=== PATIENT | male | born 1960 | race Caucasian/White ===

== ENCOUNTER 2018-11-08 14:25 | Emergency (ER) | payer MEDICARE ==
--- NOTE | 2018-11-08 14:45 | NUR ---
CALLED FOR TRIAGE NOT IN THE ROOM
--- NOTE | 2018-11-08 16:50 | NUR ---
CALLED FOR TRIAGE NOT IN THE WAITING ROOM
[2018-11-09] MEDS ORDERED: ASPI-1152 PO (10:08)
[2018-11-09] MEDS ORDERED: RISP4TAB PO (10:08)
[2018-11-09] MEDS ORDERED: CHLO25TA2 PO (10:08)
[2018-11-09] MEDS ORDERED: BENA10TA9 PO (10:08)
[2018-11-09] MEDS ORDERED: BENZ1TAB7 PO (10:08)
[2018-11-09] MEDS ORDERED: CARB200T PO (10:08)
[2018-11-09] MEDS ORDERED: GLIP5TAB13 PO (10:08)
[2018-11-09] MEDS ORDERED: ATOR20TA PO (10:08)
[2018-11-09] MEDS ORDERED: METF-442 PO (10:08)
== END 2018-11-08 17:05 | disposition left against medical advice (07) ==
LOC: ER 14:25
DX: Z53.21 Procedure and treatment not carried out due to patient leaving prior to being seen by health care provider (principal)

== ENCOUNTER 2018-11-08 18:53 | Inpatient (IN) | payer MEDICARE ==
[~2018-11-08] VITALS: Ht 182.9 cm; Wt 88.5 kg
--- NOTE | 2018-11-08 19:15 | NUR ---
C/O HYPERGLYCEMIA FROM SNF ([facility]). PT AAOX3, VSS. DENIES CP, SOB, DIZZINESS, HU, N/V, WEAKNESS @ THIS TIME. PT SEEN & EVAL'D BY DR. NIXON. WILL CONT TO MONITOR.
[2018-11-08 19:23] LABS: BASOPHILS # (AUTO) 0.1 /CMM (0.0-0.2); BASOPHILS % (AUTO) 0.8 % (0.0-2.0); EOSINOPHILS % (AUTO) 1.1 % (0.0-6.0); HEMATOCRIT 43 % (39-51); HEMOGLOBIN 14.5 g/dL (13.5-17.5); LYMPHOCYTES # (AUTO) 1.8 /CMM (0.8-4.8); LYMPHOCYTES % (AUTO) 18.5 % (20.0-44.0); MEAN CORPUSCULAR HGB CONC 34 g/dl (31.0-36.0); MEAN CORPUSCULAR VOLUME 93 fL (80-96); MONOCYTES # (AUTO) 0.6 /CMM (0.1-1.30); MONOCYTES % (AUTO) 6.6 % (2.0-12.0); NEUTROPHILS # (AUTO) 6.9 /CMM (1.8-8.9); PLATELET COUNT (AUTO) 234 /CMM (150-450); WHITE BLOOD COUNT (AUTO) 9.5 K/uL (4.3-11.0)
[2018-11-08 19:36] LABS: CALCIUM, SERUM 9.4 mg/dL (8.5-10.1); CREATININE 1.5 mg/dL (0.6-1.3); POTASSIUM 4.8 mmol/L (3.5-5.1)
[2018-11-08 19:42] LABS: ALCOHOL, BLOOD < 3 mg/dL (0-0); MAGNESIUM 1.8 mg/dL (1.8-2.4); PHOSPHORUS 3.3 mg/dL (2.5-4.9)
[2018-11-08 20:00] LABS: APPEARANCE,URINE Clear (CLEAR); BILIRUBIN,URINE Negative (NEGATIVE); BLOOD, URINE Negative Ery/uL (NEGATIVE); COLOR,URINE Yellow (YELLOW); KETONES,URINE Trace (NEGATIVE); LEUKOCYTE ESTERASE ,URINE Negative (NEGATIVE); NITRITE, URINE Negative (NEGATIVE); PROTEIN,URINE Negative (NEGATIVE); UGLUCOSE >=1000 mg/dL (NEGATIVE); UROBILINOGEN,URINE 0.2 EU/dL (0.2)
--- NOTE | 2018-11-08 20:05 | NUR ---
PT ADMIT TO 322-1 MED SURG DX HYPERGLYCEMIA DR MOISE ACCEPTED.
[2018-11-08 20:22] LABS: BACTERIA,URINE None seen /HPF (None Seen); RBC,URINE 0-2 /HPF (0-2); SQUAMOUS EPITHELIAL CELL,UR Few /HPF (None Seen); WBC,URINE 0-2 /HPF (0-3)
[2018-11-08] MEDS ORDERED: IV NS 0.9% 1,000 ML BAG IV STA (20:35)
[2018-11-08 20:45] LABS: ABG BASE EXCESS 1.5 mmol/L; ABG OXYGEN SATURATION 43.6 % (92.0-98.5); ABG PCO2 51.2 mmHg (35.0-45.0); ABG PH 7.356 (7.350-7.450); ABG PO2 23.2 mmHg (75.0-100.0); COHb 4.6 % (0.5-1.5); MetHb 0.4 % (0.0-1.5); O2Hb 41.4 % (94.0-97.0); SITE, ABG A-Line; VENT MODE, BG Room Air
[2018-11-08] MEDS ORDERED: INSULIN REGULAR, HUMAN 100 UNIT/ML 10 ML VIAL ONE (20:46)
[2018-11-08] MEDS ORDERED: INSULIN REGULAR, HUMAN 100 UNIT/ML 3 ML VIAL SQ ONE (21:00)
--- NOTE | 2018-11-08 21:04 | NUR ---
MEDICATED FOR ELEVATED BG PER ERMD ORDER, PT LORI WELL. REPORT GIVEN TO PAOLA MUNIZ AT MS3 FOR CONT OF CARE.
[2018-11-08 21:15] VITALS: BP 135/81
--- NOTE | 2018-11-08 21:15 | NUR ---
RN MS ADMITTING OPENING NOTES RECEIVED PATIENT FROM ER [facility] WHEELCHAIR, SAFELY TRANSFERRED TO BED, AMBULATORY WITH ASSIST, AWAKE ALERT AND ORIENTED X3, ABLE MAKE NEEDS KNOWN RESPIRATIONS EVEN AND UNLABORED WITH EQUAL RISE AND FALL OF CHEST, DENIES ANY PAIN OR DISCOMFORT AT THIS TIME, IV SITE TO RIGHT AC #18 G INTACT AND PATENT, NO REDNESS, NO INFILTRATION PRESENT, BELONGINGS LIST DONE, PATIENT IS UNABLE TO RECALL WHAT MEDICATIONS HE TAKES WILL NOTIFY MD OF MED LIST SENT FROM FACILITY, ORIENTED TO STAFF AND CALL LIGHT, SAFETY PRECAUTIONS IN PLACE, LOW BED AND LOCKED, BODY ASSESSMENT DONE, PICTURES TAKEN, PATIENT MADE COMFORTABLE WILL NOTIFY MD OF ADMISSION.
[2018-11-08 21:30] VITALS: BP 135/88
--- NOTE | 2018-11-08 21:45 | NUR ---
RN MS NOTES RECEIVED CALL BACK FROM NOTIFIED OD ACCUCHECK OF 491. VS WNL, 135/81,80,98.0,97%RA,20. WEIGHT 195.5 WENT OVER MED LIST PER MD CONTINUE CHLORTHALIDONE 25MG TAB DAILY BENAZEPRIL 10MG DAILY LIPITOR 20MG HS ASPIRIN 81MG DAILY TEGRETOL 200MG BID RISPERIDONE 4MG BID COGENTIN 1MG BID METFORMIN 1000MG BID DIET CCHO DIABETIC DIET IVF NS AT 75ML/HR PER MD USE WHAT WE HAVE IN FACILITY LEVEMIR 22 UNITS Q 12HOURS ONE DOSE TONIGHT AND NEXT DOSE 10 AM NOVOLOG 14 UNITS AC HUMALOG PER SLIDING SCALE FOR CORRECTION DOSE GAOL 150-200 2 UNIT FOR EVERY 50 STARTING AT 151-200 =2 units and so fourth up to 500= 14 UNITS AND CALL MD WHEN ACCUCHECK 500 AND ABOVE WITH MEALS. Addendum: 11/09/18 at 0400 by FLAVIO COE RN ORDERS READ BACK AND CARRIED OUT
[2018-11-08] MEDS ORDERED: INSULIN DETEMIR 100 UNIT/ML CARTRIDGE SQ SCH (23:30)
[2018-11-09] MEDS: IV NS 0.9% 1,000 ML IV SCH ×2 (00:07→17:07)
[2018-11-09] MEDS ORDERED: INSULIN GLARGINE, 100 UNIT/ML CARTRIDGE SQ ONE (00:39)
--- NOTE | 2018-11-09 00:39 | NUR ---
RN MS NOTES FACILITY DOESNT USE LEVEMIR LANTUS IS USED INSTEAD. PER MD USE WHAT FACILITY HAS
[2018-11-09] MEDS: INSULIN GLARGINE, 100 UNIT/ML CARTRIDGE SQ SCH ×3 (01:19→21:07)
[2018-11-09] MEDS ORDERED: DEXTROSE 50%-WATER 50 ML DISP.SYRIN IV PRN (02:30)
--- NOTE | 2018-11-09 07:20 | NUR ---
RN CLOSING NOTES PATIENT IN ROOM AWAKE ALERT AND ORIENTED X3, ABLE TO MAKE NEEDS KNOWN RESPIRATIONS EVEN AND UNLABORED WITH EQUAL RISE AND FALL OF CHEST, DENIES ANY PAIN OR DISCOMFORT AT THIS TIME, IV SITE TO RIGHT AC #18 G INTACT AND PATENT, NO REDNESS, NO INFILTRATION PRESENT, IVF RUNNING ORDERED, CALL LIGHT KEPT WITHIN REACH, SAFETY PRECAUTIONS IN PLACE, LOW BED AND LOCKED, PATIENT COMFORTABLE . CALLED PHARMACY FOR NOVOLOG, SAID THEY WILL BRING UNABLE TO ADMINISTER WILL ENDORSE TO NEXT SHIFT ALL NEEDS ATTENDED.
[2018-11-09] MEDS: INSULIN ASPART/LISPRO 100 UNIT/ML CARTRIDGE SQ SCH ×6 (07:30→17:34)
[2018-11-09 08:00] VITALS: BP 111/75
[2018-11-09] MEDS: ASPIRIN 81 MG TAB.CHEW PO SCH (08:38)
[2018-11-09] MEDS: BENZTROPINE MESYLATE (1 MG) 1 MG TABLET PO SCH ×2 (08:38→17:09)
[2018-11-09] MEDS: BENAZEPRIL HCL 10 MG TABLET PO SCH (08:38)
[2018-11-09] MEDS: CARBAMAZEPINE 200 MG TABLET PO SCH ×2 (08:38→17:09)
[2018-11-09] MEDS: risperiDONE 1 MG TABLET PO SCH ×2 (08:38→17:09)
[2018-11-09] MEDS ORDERED: ATOR20TA PO (10:08)
[2018-11-09] MEDS ORDERED: METF-442 PO (10:08)
[2018-11-09] MEDS ORDERED: CHLO25TA2 PO (10:08)
[2018-11-09] MEDS ORDERED: BENZ1TAB7 PO (10:08)
[2018-11-09] MEDS ORDERED: BENA10TA9 PO (10:08)
[2018-11-09] MEDS ORDERED: RISP4TAB PO (10:08)
[2018-11-09] MEDS ORDERED: ASPI-1152 PO (10:08)
[2018-11-09] MEDS ORDERED: GLIP5TAB13 PO (10:08)
[2018-11-09] MEDS ORDERED: CARB200T PO (10:08)
[2018-11-09] MEDS: METFORMIN 500 MG TABLET PO SCH ×2 (11:04→17:09)
--- NOTE | 2018-11-09 12:01 | NUR ---
MS RN NOTES-- PT SEEN AND EXAMINED BY DR. MOISE.
--- NOTE | 2018-11-09 13:12 | NUR ---
MS RN OPENING NOTES RECEIVED PT LAYING IN BED WITH HOB SLIGHTLY ELEVATED. PT IS A/O X3, AFEBRILE. RESPIRATIONS ARE EVEN AND UNLABORED, NOT IN ANY ACUTE DISTRESS NOTED. PT DENIES ANY PAIN AT THIS TIME, NO C/O SOB, N/V. IV SITE RAC INTACT, NO INFILTRATION NOTED. DRESSING KEPT CLEAN AND DRY. IV FLUIDS RUNNING AT 75ML/HR, TOLERATING WELL. SAFETY MEASURES ARE IN PLACE. WILL MONITOR THROUGHOUT SHIFT FOR CONTINUITY OF CARE. Addendum: 11/09/18 at 1842 by YOJANA ROSENBERG RN CORRECTION TIME OF OPENING NOTES 7210
[2018-11-09 16:00] VITALS: BP 86/57
[2018-11-09] MEDS: NEOMY SULF/BACITRAC ZN/POLY 15 GM TUBE TP SCH (17:08)
--- NOTE | 2018-11-09 18:41 | NUR ---
MS RN CLOSING NOTES ALL DUE MEDS GIVEN, NEEDS MET AND RENDERED. PT IS A/O X3, AFEBRILE. RESPIRATIONS ARE EVEN AND UNLABORED, NOT IN ANY ACUTE DISTRESS NOTED. PT DENIES ANY PAIN AT THIS TIME, NO C/O SOB, N/V. IV SITE RAC INTACT, NO INFILTRATION NOTED. DRESSING KEPT CLEAN AND DRY.REMINDED PT TO USE CALL LIGHT, CALL LIGHT LEFT WITHIN REACH. SAFETY MEASURES ARE IN PLACE. WILL ENDORSE TO NEXT SHIFT FOR CONTINUITY OF CARE.
--- NOTE | 2018-11-09 19:30 | NUR ---
RN MS OPENING NOTES RECEIVED PATIENT IN BED AWAKE, ALERT AND ORIENTED X3, VERBALLY RESPONSIVE, ABLE TO MAKE NEEDS KNOWN. BREATHING EVEN AND UNLABORED. NO SOB NOTED. TOLERATING ROOM AIR. NO COMPLAINTS OF PAIN OR DISCOMFORT. NO FACIAL GRIMACING. IV ON RIGHT AC INTACT AND PATENT. SKIN DRY AND WARM TO TOUCH. AFEBRILE. ALL OTHER NEEDS ATTENDED TO .SAFETY MEASURES IN PLACE. CALL LIGHT WITHIN REACH. WILL CONTINUE TO MONITOR.
[2018-11-09 20:00] VITALS: BP 102/59
[2018-11-09] MEDS: ATORVASTATIN 10 MG TABLET PO SCH (21:07)
--- NOTE | 2018-11-10 06:45 | NUR ---
RN MS CLOSING NOTES PATIENT RESTING IN BED. NO ACUTE CHANGES THROUGHOUT SHIFT. BREATHING EVEN AND UNLABORED. NO SOB NOTED. TOLERATING ROOM AIR. NO COMPLAINTS OF PAIN OR DISCOMFORT. NO FACIAL GRIMACING. IV ON RIGHT AC INTACT AND PATENT. SKIN DRY AND WARM TO TOUCH. AFEBRILE. ALL OTHER NEEDS ATTENDED TO .SAFETY MEASURES IN PLACE. CALL LIGHT WITHIN REACH. WILL ENDORSE TO ONCOMING NURSE FOR MICHAEL.
[2018-11-10] MEDS: INSULIN ASPART/LISPRO 100 UNIT/ML CARTRIDGE SQ SCH ×6 (07:30→17:29)
--- NOTE | 2018-11-10 07:45 | NUR ---
RN MS OPENING NOTES RECEIVED PATIENT IN BED AWAKE, ALERT AND ORIENTED X3, ABLE TO MAKE NEEDS KNOWN. BREATHING EVEN AND UNLABORED TO ROOM AIR, NO SOB. NO COMPLAINTS OF PAIN OR DISCOMFORT AT THIS TIME. IV ON RIGHT AC GAUGE #18 INTACT AND PATENT, NO SIGNS OR SYMPTOMS OF INFILTRATION. SKIN DRY AND WARM TO TOUCH. LINENS CLEAN AND DRY. SAFETY MEASURES IN PLACE, BED IN LOWEST LOCKED POSITION. CALL LIGHT WITHIN REACH. WILL CONTINUE TO MONITOR.
[2018-11-10 08:00] VITALS: BP 117/74
--- NOTE | 2018-11-10 08:19 | NUR ---
WOUND CARE CONSULT WOUND CARE RECEIVED CONSULT FOR ISCHIAL WOUNDS. WOUND CARE WILL DEFER CONSULT AND TREATMENT PLANS TO PLASTIC SURGICAL TEAM WHO ARE CURRENTLY FOLLOWING THIS PATIENT. PATIENT WITH ADARSH AT 20. WILL SEE PRN.
[2018-11-10] MEDS: NEOMY SULF/BACITRAC ZN/POLY 15 GM TUBE TP SCH (08:38)
[2018-11-10] MEDS: ASPIRIN 81 MG TAB.CHEW PO SCH (08:40)
[2018-11-10] MEDS: CARBAMAZEPINE 200 MG TABLET PO SCH ×2 (08:40→16:33)
[2018-11-10] MEDS: METFORMIN 500 MG TABLET PO SCH ×2 (08:40→16:33)
[2018-11-10] MEDS: BENZTROPINE MESYLATE (1 MG) 1 MG TABLET PO SCH ×2 (08:40→16:33)
[2018-11-10] MEDS: risperiDONE 1 MG TABLET PO SCH ×2 (08:40→16:33)
[2018-11-10] MEDS: BENAZEPRIL HCL 10 MG TABLET PO SCH (08:41)
[2018-11-10] MEDS ORDERED: HYDROCHLOROTHIAZIDE 25 MG TABLET PO SCH (09:00)
[2018-11-10] MEDS: INSULIN GLARGINE, 100 UNIT/ML CARTRIDGE SQ SCH ×2 (09:04→21:33)
[2018-11-10 16:00] VITALS: BP 93/67
--- NOTE | 2018-11-10 19:20 | NUR ---
RN MS CLOSING NOTES PATIENT RESTING COMFORTABLY IN BED, DENIES PAIN OR DISCOMFORT AT THIS TIME. PATIENT AOX3. NO ACUTE CHANGES THROUGHOUT SHIFT. BREATHING EVEN AND UNLABORED. NO SOB NOTED. TOLERATING ROOM AIR. IV ON RIGHT AC INTACT AND PATENT. SKIN DRY AND WARM TO TOUCH. AFEBRILE. ALL NEEDS AND CARE ATTENDED WELL. SAFETY MEASURES IN PLACE, BED IN LOWEST LOCKED POSITION, SRX2 UP. CALL LIGHT WITHIN REACH. ENDORSED TO NIGHT NURSE SANDRA FOR MICHAEL.
[2018-11-10 20:27] VITALS: BP 117/54
[2018-11-10] MEDS: ATORVASTATIN 10 MG TABLET PO SCH (21:35)
[2018-11-11] MEDS: INSULIN ASPART/LISPRO 100 UNIT/ML CARTRIDGE SQ SCH ×4 (06:36→12:00)
[2018-11-11 08:00] VITALS: BP 115/82
[2018-11-11 10:06] VITALS: BP 115/82
[2018-11-11] MEDS: BENAZEPRIL HCL 10 MG TABLET PO SCH (10:06)
[2018-11-11] MEDS: METFORMIN 500 MG TABLET PO SCH (10:07)
[2018-11-11] MEDS: BENZTROPINE MESYLATE (1 MG) 1 MG TABLET PO SCH (10:07)
[2018-11-11] MEDS: ASPIRIN 81 MG TAB.CHEW PO SCH (10:07)
[2018-11-11] MEDS: CARBAMAZEPINE 200 MG TABLET PO SCH (10:07)
[2018-11-11] MEDS: risperiDONE 1 MG TABLET PO SCH (10:07)
[2018-11-11] MEDS: INSULIN GLARGINE, 100 UNIT/ML CARTRIDGE SQ SCH (10:09)
[2018-11-11] MEDS: NEOMY SULF/BACITRAC ZN/POLY 15 GM TUBE TP SCH (10:10)
--- NOTE | 2018-11-11 14:20 | NUR ---
MANAGER [employer]ARM NOTES PATIENT DISCHARGED TO [facility] IN STABLE CONDITION ALERT AND ORIENTED X3. IV ACCESS REMOVED, NO BLEEDING NOTED. VITAL SIGNS TAKEN AND RECORDED, WNL. PHOTOS OF SKIN ISSUES TAKEN AND FILED IN CHART. CALLED AND GIVEN TO PAOLA JEFF OF [facility] AT 1330. REPORTED ALL NEEDS FOR CONTINUITY OF CARE, AND ALL MEDICATIONS GIVEN TODAY INCLUDING LAST DOSE OF INSULIN AND BS 93 AT 1200. ALL BELONGINGS ACCOUNTED FOR AND PT SIGNED BELONGINGS LIST. HEALTH TEACHINGS GIVEN TO PATIENT AND PT VERBALIZED UNDERSTANDING. PATIENT DISCHARGED VIA AMBULANCE ACCOMPANIED BY TWO [employer]LECT[employer] TE[employer] ASSEMBLER 1440. MD AND CHARGE NURSE AWARE OF DISCHARGE.
== END 2018-11-11 14:40 | DRG 638 ==
LOC: ER 18:53 → MED 20:10
PROVIDERS: ADMIT Internal Medicine; ATTEND Internal Medicine
DX: E11.65 Type 2 diabetes mellitus with hyperglycemia (principal); F20.0 Paranoid schizophrenia; E78.5 Hyperlipidemia, unspecified; I10 Essential (primary) hypertension; Z88.0 Allergy status to penicillin; L08.9 Local infection of the skin and subcutaneous tissue, unspecified; S30.820A Blister (nonthermal) of lower back and pelvis, initial encounter; X58.XXXA Exposure to other specified factors, initial encounter; Y92.129 Unspecified place in nursing home as the place of occurrence of the external cause; I25.10 Atherosclerotic heart disease of native coronary artery without angina pectoris; Z72.0 Tobacco use; Z79.4 Long term (current) use of insulin; Z79.899 Other long term (current) drug therapy; Z79.82 Long term (current) use of aspirin; Z91.14 Patient's other noncompliance with medication regimen
CPT/HCPCS: 36415; 36600; 80048-TC; 80305; 81000-TC; 82962-TC; 83735-TC; 84100-TC; 85025-TC; 87081-TC; A6402; G0378; G0480; J1815; J7030